=== PATIENT | male | born 1960 | race Two or more races ===

== ENCOUNTER 2017-12-01 17:14 | Emergency (ER) | payer MEDICAID ==
[~2017-12-01] VITALS: Ht 170.2 cm; Wt 71.2 kg
[2017-12-01 17:27] VITALS: BP 161/99; Ht 170.2 cm; Wt 71.2 kg
== END 2017-12-01 19:07 | disposition home or self-care (01) ==
LOC: ED 17:14
DX: S62.660A Nondisplaced fracture of distal phalanx of right index finger, initial encounter for closed fracture (principal); W22.8XXA Striking against or struck by other objects, initial encounter; Y93.89 Activity, other specified; Y92.89 Other specified places as the place of occurrence of the external cause; Y99.8 Other external cause status
CPT/HCPCS: A4570

== ENCOUNTER 2018-07-18 11:54 | Emergency (ER) | payer SELFPAY ==
[~2018-07-18] VITALS: Ht 162.6 cm; Wt 70.4 kg
[2018-07-18 12:21] VITALS: Ht 162.6 cm; Wt 70.4 kg
[2018-07-18 14:40] VITALS: BP 150/97
== END 2018-07-18 14:40 | disposition home or self-care (01) ==
LOC: ED 11:54
DX: S52.611A Displaced fracture of right ulna styloid process, initial encounter for closed fracture (principal); S52.511A Displaced fracture of right radial styloid process, initial encounter for closed fracture; X58.XXXA Exposure to other specified factors, initial encounter; Y93.89 Activity, other specified; Y92.89 Other specified places as the place of occurrence of the external cause; Y99.8 Other external cause status